=== PATIENT | female | born 1980 | race Hispanic/Latino ===

== ENCOUNTER 2016-10-08 12:32 | Inpatient (IN) ==
[2016-10-08] MEDS: LR 1,000 ML IV SCH ×2 (12:45→13:25)
[2016-10-08] MEDS ORDERED: LR 500 ML IV ONE (12:46)
[2016-10-08] MEDS ORDERED: KEFZOL 1 GM/D5W 1 GM/50 ML IVPB IV PRN (12:46)
[2016-10-08] MEDS ORDERED: STADOL IV PRN (12:46)
[2016-10-08] MEDS ORDERED: ZOFRAN IV PRN (12:46)
[2016-10-08] MEDS ORDERED: PEPCID PO PRN (12:46)
[2016-10-08] MEDS ORDERED: PEPCID PO ONE (12:46)
[2016-10-08] MEDS ORDERED: PEPCID IV PRN (12:46)
[2016-10-08] MEDS ORDERED: REGLAN PO ONE (12:46)
[2016-10-08] MEDS ORDERED: TYLENOL PO PRN (12:46)
[2016-10-08] MEDS ORDERED: PITOCIN 30 UNITS/LR 30 UNITS/500 ML IV.SOLN IV SCH (12:46)
[2016-10-08] MEDS ORDERED: SODIUM CHLORIDE 0.9% INJ SCH (13:00)
[2016-10-08 13:01] LABS: MANUAL DIFF NEEDED? NO
[2016-10-08 13:02] LABS: BASO% 0.1 % (0.0-0.8); EOS# 0.03 X1000 (0.0-0.7); EOS% 0.3 % (0.0-10.0); HEMATOCRIT 37.6 % (37.0-47.0); HEMOGLOBIN 12.7 g/dL (12.0-16.0); IMM GRAN# 0.07 X1000 (0.0-0.04); IMM GRAN% 0.6 % (0.0-0.5); LYMPH# 1.45 X1000 (1.2-3.4); LYMPH% 12.7 % (20.5-51.1); MCH 28.9 PG (27-31); MCHC 33.8 g/dL (33-37); MCV 85.5 FL (81-99); MONO# 0.99 X1000 (0.11-0.59); MONO% 8.7 % (1.7-9.3); MPV 11.3 FL (7.4-10.4); NEUT% 77.6 % (42.2-75.2); PLT 130 X1000 (130-400)
[2016-10-08] MEDS ORDERED: XYLOCAINE-MPF 1% ONE (13:29)
[2016-10-08] MEDS ORDERED: MINERAL OIL ONE (13:32)
[2016-10-08] MEDS ORDERED: PERCOCET-5 PO PRN (14:01)
[2016-10-08] MEDS ORDERED: M-M-R II VACCINE SUBQ ONE (14:01)
[2016-10-08] MEDS ORDERED: AMBIEN PO PRN (14:01)
[2016-10-08] MEDS ORDERED: PERI MEDS (DERMOPLAST/NUPERCAINAL/TUCKS) MISC PRN (14:01)
[2016-10-08] MEDS ORDERED: MINERAL OIL PO PRN (14:01)
[2016-10-08] MEDS ORDERED: NORCO-10 PO PRN (14:01)
[2016-10-08] MEDS ORDERED: XYLOCAINE-MPF 1% INJ PRN (14:01)
[2016-10-08] MEDS ORDERED: PITOCIN IM PRN (14:01)
[2016-10-08] MEDS ORDERED: BENADRYL PO PRN (14:01)
[2016-10-08] MEDS ORDERED: HYDROXYZINE IM PRN (14:01)
[2016-10-08] MEDS ORDERED: HYDROXYZINE PO PRN (14:01)
[2016-10-08] MEDS ORDERED: PERCOCET-10 PO PRN (14:01)
[2016-10-08] MEDS ORDERED: NORCO-5 PO PRN (14:01)
[2016-10-08] MEDS ORDERED: PITOCIN 20 UNITS/LR 20 UNITS/1,000 ML IV.SOLN IV SCH (14:01)
[2016-10-08] MEDS ORDERED: CYTOTEC PO PRN (14:01)
[2016-10-08] MEDS ORDERED: BOOSTRIX VACCINE IM ONE (14:01)
[2016-10-08] MEDS ORDERED: BENADRYL IV PRN (14:01)
[2016-10-08] MEDS ORDERED: PITOCIN 30 UNITS/LR 30 UNITS/500 ML IV.SOLN IV ONE (14:01)
--- NOTE | 2016-10-08 14:19 | OPERATIVE NOTE ---
PROCEDURE DATE: 10/08/2016 DELIVERING PHYSICIAN: Dr. De León. TYPE OF DELIVERY: Spontaneous vaginal delivery. ANESTHESIA: None. FINDINGS: At 13:36 an 8 pound 13 ounce male infant was delivered in occiput anterior presentation. Apgars were 9 at 1 minute and 10 at 5 minutes. There was a nuchal cord x1. There was light meconium stained fluid. There was mild shoulder dystocia. This with relieved with Justa positioning and suprapubic pressure. SUMMARY: Alyssa Forde is a 36-year-old, 3, para 2-0-0-2 at 38-1/2 weeks gestation. Her blood type is B positive. Rubella immune. Hepatitis B surface antigen, HIV, and group B strep is negative. She has had an uncomplicated . She presented to Labor and Delivery in active labor. She was 6 cm upon admission. She very soon was complete. Membranes were ruptured revealing light nonparticulate meconium-stained fluid. There is no signs of distress. She began pushing and soon crowned. At that point she was placed in the dorsal lithotomy position. The perineum was prepped and draped in usual fashion. A spontaneous vaginal delivery occurred. There was a nuchal cord. There was mild shoulder dystocia which was relieved by Justa positioning and suprapubic pressure. Once the 's head was delivered, the oropharynx was bulb suctioned. Cord was clamped and cut. The was handed to the nurses for further care and evaluation. Cord blood was obtained. Placenta was spontaneously delivered and was intact. There were no cervical or vaginal lacerations and blood loss estimated at 150 mL. Patient remained in the LDR recovering without difficulty. cc: Jono De León MD
[2016-10-08] MEDS ORDERED: PERICOLACE PO SCH (21:00)
[2016-10-09] MEDS: MOTRIN PO PRN ×3 (02:10→22:00)
[2016-10-09 06:26] LABS: HEMATOCRIT 36.3 % (37.0-47.0); HEMOGLOBIN 11.8 g/dL (12.0-16.0); MCH 27.8 PG (27-31); MCHC 32.5 g/dL (33-37); MCV 85.6 FL (81-99); MPV 11.5 FL (7.4-10.4); RBC 4.24 XMIL (4.2-5.4)
[2016-10-09] MEDS: PRECARE PO SCH (12:34)
[2016-10-10 08:09] VITALS: BP 123/70
[2016-10-10] MEDS: PRECARE PO SCH (08:36)
== END 2016-10-10 09:48 | disposition home or self-care (01) ==
LOC: P.LD 12:32
PROVIDERS: ADMIT Obstetrics & Gynecology; ATTEND Obstetrics & Gynecology